=== PATIENT | female | born 1985 | race Two or more races ===

== ENCOUNTER 2018-01-07 09:07 | Inpatient (IN) | payer OTHER ==
[2018-01-07] MEDS ORDERED: DEXTROSE 5%-LACTATED RINGERS 1,000 ML IV SCH (10:00)
[2018-01-07 10:38] LABS: BASO % 0.2 % (0-2.0); EOS % 0.5 % (0-4.5); HEMATOCRIT 38.9 % (32.4-45.2); HEMOGLOBIN 12.9 GM/dL (10.7-15.3); LYMPH % 13.7 % (8-40); MCH 30.8 pg (25.7-33.7); MCHC 33.2 g/dl (32.0-36.0); MEAN CELL VOLUME 92.9 fl (80-96); MEAN PLT VOLUME 10.8 fl (7.5-11.1); MONO % 4.5 % (3.8-10.2); NEUT % 81.1 % (42.8-82.8); PLATELET COUNT 179 K/MM3 (134-434); RBC 4.19 M/mm3 (3.60-5.2); RDW 14.2 % (11.6-15.6); WHITE BLOOD COUNT 11.6 K/mm3 (4.0-10.0)
[2018-01-07 10:50] LABS: INR 0.88 (0.83-1.09); PROTHROMBIN TIME (PATIENT) 10.4 SEC (9.7-13.0)
[2018-01-07 10:52] LABS: ACTIVATED PTT 31.8 SECONDS (25.2-36.5)
[2018-01-07] MEDS: DEXTROSE 5%-LACTATED RINGERS 1,000 ML IV SCH (11:00)
[2018-01-07 11:24] VITALS: BMI 28.1
[2018-01-07 11:44] LABS: ANION GAP 9 MMOL/L (8-16); BLOOD UREA NITROGEN 7 mg/dL (7-18); CALCIUM 8.9 mg/dL (8.5-10.1); CHLORIDE 108 mmol/L (98-107); CO2 22 mmol/L (21-32); CREATININE 0.5 mg/dL (0.55-1.3); GLUCOSE,RANDOM 139 mg/dL (74-106); POTASSIUM 3.9 mmol/L (3.5-5.1); SODIUM 139 mmol/L (136-145)
[2018-01-07] MEDS ORDERED: BUTORPHANOL TARTRATE 1 MG/ML VIAL ONE ×2 (15:30)
[2018-01-07] MEDS ORDERED: BUTORPHANOL TARTRATE 1 MG/ML VIAL IVPB ONE (15:30)
[2018-01-07] MEDS ORDERED: PROMETHAZINE HCL 25 MG/1 ML VIAL IVPB ONE (15:30)
[2018-01-07] MEDS ORDERED: PROMETHAZINE HCL 25 MG/1 ML VIAL ONE (15:30)
[2018-01-07] MEDS: OXYTOCIN 30 UNITS in 0.9% NS 30 UNIT/500 ML INFUS.BAG IVPB SCH (17:30)
[2018-01-07] MEDS ORDERED: ELECTROLYTE-148 SOLN 500 ML IV ONE (18:00)
--- NOTE | 2018-01-07 18:40 | HP ---
Past Medical History - Primary Care Physician PCP:: Lindsay Zavala - Admission Chief Complaint: 32yo P0 @ 39.4 wks with contractions since 5:30am and LOF since 8:30am, clear no Vaginal bleeding, + movement History of Present Illness: 1. Declined Anuploidy screen 2. Posterior placenta previa 3. Resolved posterior placenta previa 4. Tdap @ 28wks 5. Increased PP depression risk as per Dr. Barker 6. GBS neg History Source: Patient Limitations to Obtaining History: No Limitations - Past Medical History ...: 1 ...Para: 0 ...Term: 0 ...: 0 ...Spon : 0 ...Induced : 0 ...LMP: 04/03/17 ... Weeks Gestation by Dates: 39.6 ...EDC by Dates: 01/08/18 ...EDC by Sono: 01/08/18 Additional Medical History: Migranes. 2013 Chlamydia - Past Surgical History Past Surgical History: Yes: None Hx Myomectomy: No Hx Transabdominal Cerclage: No - Smoking History Smoking history: Never smoked Have you smoked in the past 12 months: No - Alcohol/Substance Use Hx Alcohol Use: No History of Substance Use: reports: None - Social History Usual Living Arrangement: Yes: With Spouse History of Recent Travel: No Home Medications - Allergies Allergies/Adverse Reactions: Allergies Allergy/AdvReac Type Severity Reaction Status Date / Time No Known Drug Allergies Allergy Verified 01/07/18 11:57 - Home Medications Home Medications: Ambulatory Orders Prenat 115/Iron Fum/Folic/Dss [ 19 Tablet] 1 tab PO DAILY 01/07/18 Review of Systems - Review of Systems Constitutional: reports: No Symptoms Eyes: reports: No Symptoms HENT: reports: No Symptoms Neck: reports: No Symptoms Cardiovascular: reports: No Symptoms Respiratory: reports: No Symptoms Gastrointestinal: reports: No Symptoms Genitourinary: reports: No Symptoms Breasts: reports: No Symptoms Reported Musculoskeletal: reports: No Symptoms Integumentary: reports: No Symptoms Neurological: reports: No Symptoms Endocrine: reports: No Symptoms Hematology/Lymphatic: reports: No Symptoms Psychiatric: reports: No Symptoms Physical Exam - Maternity Vital Signs: Vital Signs Temperature 98.9 F 01/07/18 17:51 Pulse Rate 87 01/07/18 17:51 Respiratory Rate 20 01/07/18 17:51 Blood Pressure 126/73 01/07/18 17:51 O2 Sat by Pulse Oximetry (%) Constitutional: Yes: Well Nourished, No Distress, Calm Eyes: Yes: WNL, Conjunctiva Clear, EOM Intact HENT: Yes: WNL, Atraumatic, Normocephalic Neck: Yes: WNL, Supple, Trachea Midline Cardiovascular: Yes: WNL, Regular Rate and Rhythm Lungs: Clear to auscultation Breast(s): Yes: WNL - Abdominal Exam/OB Fundal Height: 39 (7lb) Number of Fetuses: Single Presentation: Vertex Contractions: Yes Regularity: Regular Intensity: Moderate Monitor Mode: External Heart Rate (range): 135's Heart Rate Location: Midline Category: I Accelerations: Uniform Decelerations: None - Vaginal Exam/OB Vaginal Bleediing: No Speculum Exam: No Dilatation (cm): 5 Effacement (%): 75% Amniotic Membrane Status: Bulging (forewaters) Nitrazine Test: Positive Amniotic Fluid: Yes: Clear Presentation: Vertex/Position Station: -3 - Physical Exam Musculoskeletal: Yes: WNL Extremities: Yes: WNL Edema: No Integumentary: Yes: WNL ...Motor Strength: WNL Psychiatric: Yes: WNL, Alert, Oriented - Labs Lab Results: CBC, BMP 01/07/18 10:23 01/07/18 10:23 Assessment/Plan 32yo P0 @ 39.4wks Admit to L&D IVFluids, NPO Pain managment as needed Adequate pelvis EFW -7lb Category 1 FHR Will monitor labor progress Anticipate
[2018-01-07] MEDS ORDERED: FENTANYL/BUPIVACAINE/NS/PF - PCEA - 50 ML DISP.SYRIN EP ONE (18:59)
[2018-01-07] MEDS ORDERED: ELECTROLYTE-148 SOLN 1,000 ML IV SCH (19:00)
[2018-01-07] MEDS ORDERED: NALOXONE HCL 0.4 MG/ML VIAL IVPUSH PRN (20:12)
[2018-01-07] MEDS ORDERED: FENTANYL/BUPIVACAINE/NS/PF - PCEA - 50 ML DISP.SYRIN EP SCH (20:15)
--- NOTE | 2018-01-07 21:28 | PN ---
Progress Note, Labor Vaginal Exam #1 Labor Exam Date: 01/07/18 Labor Exam Time: 21:00 Heart Rate (range): 150's + accels, occasional varriable decels Dilatation: 7cm Effacement (%): 80 Amniotic Membrane Status: Ruptured Presentation: Vertex/Position Station: -2 Remarks: very reassuring Category 2 FHR continue O2 by face mask and position change for prevention of variable decelerations
[2018-01-08] MEDS ORDERED: FENTANYL/BUPIVACAINE/NS/PF - PCEA - 50 ML DISP.SYRIN EP ONE (00:05)
[2018-01-08] MEDS ORDERED: LIDOCAINE HCL 1% PRESERVATIVE FREE - 30ML VIAL ONE (00:15)
[2018-01-08] MEDS ORDERED: OXYTOCIN 20 UNITS in 0.9% NS 20 UNIT/1,000 ML INFUS.BAG IV ONE (00:15)
[2018-01-08] MEDS ORDERED: BENZOCAINE 28 GM HEMORRHOIDAL OINTMENT TP PRN ×2 (03:32)
[2018-01-08] MEDS ORDERED: IBUPROFEN 600 MG TABLET (FP) PO PRN (03:32)
[2018-01-08] MEDS ORDERED: METHYLERGONOVINE MALEATE 0.2 MG/1 ML AMP IM PRN ×2 (03:32)
[2018-01-08] MEDS ORDERED: WITCH HAZEL 50% (TUCKS) 40 PAD/JAR PAD TP PRN ×2 (03:32)
[2018-01-08] MEDS ORDERED: BISACODYL 10 MG SUPP.RECT RC PRN ×2 (03:32)
[2018-01-08] MEDS ORDERED: ACETAMINOPHEN 325 MG TABLET (FP) PO PRN (03:32)
[2018-01-08] MEDS ORDERED: BENZOCAINE 20% 57 GM BOTTLE TP PRN (03:32)
--- NOTE | 2018-01-08 03:42 | PN ---
Delivery - Delivery Vaginal Delivery: No Problems Type of Anesthesia: Epidural Episiotomy/Laceration: Midline EBL (cc): 500 Delivery, Single - Stages of Labor Date 1st Stage Initiatied: 01/07/18 Time 1st Stage Initiated: 05:45 Date 2nd Stage Initiated: 01/08/18 Time 2nd Stage Initiated: 02:40 Date of Delivery: 01/08/18 Time of Delivery: 03:07 Date Placenta Delivered: 01/08/18 Time Placenta Delivered: 03:15 Placenta: Yes: Spontaneous - Condition of Infant Chief Radiology/Music Agent Present: No Infant Gender: Male Position: Left, OA Total Hours ROM (Hrs/Mins): 19 hr - 1 Minute Total Score: 9 5 Minutes Total Score: 9 - Feeding Plan Initial Plan: Exclusive throughout hospitalization Benefits of Exclusively reinforced: Yes Remarks - Remarks Remarks: Cord around the neck x 2 reduced without difficulty head and shoulders delivered without difficulty
[2018-01-08] MEDS ORDERED: D5W-LR W/ 20 UNITS OXYTOCIN 1,000 ML IV SCH (03:45)
[2018-01-08] MEDS ORDERED: OXYTOCIN 20 UNITS in 0.9% NS 20 UNIT/1,000 ML INFUS.BAG IV SCH (03:45)
[2018-01-08 03:52] LABS: ARTERIAL BLOOD GAS BASE EXCESS -7.2 meq/l (-2-2)
[2018-01-08 04:04] LABS: ARTERIAL BLOOD GAS PCO2 62.3 mmHg (35-45); ARTERIAL BLOOD GAS pH 7.18 (7.35-7.45)
[2018-01-08 04:05] LABS: ARTERIAL BLD GAS O2 SATURATION 12.2 % (90-98.9)
[2018-01-08 04:08] LABS: VENOUS PC02 44.7 mmHg (38-52); VENOUS PH 7.29 (7.32-7.42)
[2018-01-08 04:09] LABS: VENOUS PO2 23.6 mmHg (28-48)
[2018-01-08] MEDS: FERROUS SO4 325 MG TABLET (FP) PO SCH ×2 (07:24→16:36)
[2018-01-08] MEDS: IBUPROFEN 600 MG TABLET (FP) PO PRN ×3 (07:24→16:36)
[2018-01-08] MEDS: ACETAMINOPHEN 325 MG TABLET (FP) PO PRN ×3 (07:25→16:36)
[2018-01-08] MEDS: BENZOCAINE 20% 57 GM BOTTLE TP PRN (07:27)
[2018-01-08] MEDS ORDERED: PRENATAL VITAMINS W/ FOLIC ACID TABLET (FP) PO SCH (10:00)
[2018-01-08] MEDS: PRENATAL VITAMINS W/ FOLIC ACID TABLET (FP) PO SCH (10:31)
[2018-01-08] MEDS: DEXTROSE 5%-LACTATED RINGERS 1,000 ML IV SCH (12:28)
[2018-01-08] MEDS: OXYTOCIN 30 UNITS in 0.9% NS 30 UNIT/500 ML INFUS.BAG IVPB SCH (18:32)
[2018-01-09 07:22] LABS: BASO % 0.4 % (0-2.0); EOS % 1.2 % (0-4.5); HEMOGLOBIN 10.4 GM/dL (10.7-15.3); LYMPH % 17.5 % (8-40); MCH 30.2 pg (25.7-33.7); MCHC 32.4 g/dl (32.0-36.0); MEAN CELL VOLUME 93.3 fl (80-96); MEAN PLT VOLUME 10.2 fl (7.5-11.1); MONO % 5.2 % (3.8-10.2); NEUT % 75.7 % (42.8-82.8); PLATELET COUNT 159 K/MM3 (134-434); RBC 3.43 M/mm3 (3.60-5.2); RDW 14.8 % (11.6-15.6); WHITE BLOOD COUNT 12.5 K/mm3 (4.0-10.0)
--- NOTE | 2018-01-09 07:44 | PN ---
Post Progress Note - Subjective Subjective: No complaints Post Day: 1 Type of Delivery: Vital Signs: Vital Signs Temperature 97.7 F 01/08/18 20:53 Pulse Rate 106 H 01/08/18 20:53 Respiratory Rate 20 01/08/18 20:53 Blood Pressure 134/81 01/08/18 20:53 O2 Sat by Pulse Oximetry (%) 100 01/08/18 04:40 Breast Exam: Yes: Soft Uterus: Yes: Fundus Firm, Fundus below umbilicus, Non-tender Incision: Yes: Dressing dry and intact Abdomen/GI: Yes: Abdomen soft, Tolerating PO Lochia: Yes: Rubra Lochia, amount: Small Extremities: Yes: Calves non-tender Perineum: Yes: Intact Activity: Ambulating - Labs Labs: CBC WBC 12.5 K/mm3 (4.0-10.0) H 01/09/18 06:30 RBC 3.43 M/mm3 (3.60-5.2) L 01/09/18 06:30 Hgb 10.4 GM/dL (10.7-15.3) L 01/09/18 06:30 Hct 32.0 % (32.4-45.2) L D 01/09/18 06:30 MCV 93.3 fl (80-96) 01/09/18 06:30 MCH 30.2 pg (25.7-33.7) 01/09/18 06:30 MCHC 32.4 g/dl (32.0-36.0) 01/09/18 06:30 RDW 14.8 % (11.6-15.6) 01/09/18 06:30 Plt Count 159 K/MM3 (134-434) 01/09/18 06:30 MPV 10.2 fl (7.5-11.1) 01/09/18 06:30 Absolute Neuts (auto) 9.4 K/mm3 (1.5-8.0) H 01/09/18 06:30 Neutrophils % 75.7 % (42.8-82.8) 01/09/18 06:30 Lymphocytes % 17.5 % (8-40) D 01/09/18 06:30 Monocytes % 5.2 % (3.8-10.2) 01/09/18 06:30 Eosinophils % 1.2 % (0-4.5) D 01/09/18 06:30 Basophils % 0.4 % (0-2.0) 01/09/18 06:30 Nucleated RBC % 0 % (0-0) 01/09/18 06:30 Assessment/Plan 32yo PPD1 s/p , doing well stable, afebrile. care instructions reviewed. Continue routine care. Ambulation encouraged Discharge instruction reviewed.
--- NOTE | 2018-01-09 08:11 | DS ---
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: Vital Signs Temperature 97.7 F 01/08/18 20:53 Pulse Rate 106 H 01/08/18 20:53 Respiratory Rate 20 01/08/18 20:53 Blood Pressure 134/81 01/08/18 20:53 O2 Sat by Pulse Oximetry (%) 100 01/08/18 04:40 Constitutional: Yes: Well Nourished, No Distress, Calm Eyes: Yes: WNL, Conjunctiva Clear HENT: Yes: WNL, Atraumatic, Normocephalic Neck: Yes: WNL, Supple, Trachea Midline Cardiovascular: Yes: WNL, Regular Rate and Rhythm Respiratory: Yes: WNL, Regular, CTA Bilaterally Gastrointestinal: Yes: WNL, Normal Bowel Sounds, Soft ...Rectal Exam: Yes: Deferred Renal/: Yes: WNL Pelvis: Yes: WNL ....Post : Yes: Uterus firm, Uterus non-tender, Slight lochia rubra Breast(s): Yes: WNL Musculoskeletal: Yes: WNL Extremities: Yes: WNL Integumentary: Yes: WNL Neurological: Yes: WNL, Alert, Oriented ...Motor Strength: WNL Psychiatric: Yes: WNL, Alert, Oriented Labs: CBC, BMP 01/09/18 06:30 01/07/18 10:23 Delivery - Delivery Vaginal Delivery: No Problems Type of Anesthesia: Epidural Episiotomy/Laceration: Midline EBL (cc): 500 Delivery, Single - Stages of Labor Date 1st Stage Initiatied: 01/07/18 Time 1st Stage Initiated: 05:45 Date 2nd Stage Initiated: 01/08/18 Time 2nd Stage Initiated: 02:40 Date of Delivery: 01/08/18 Time of Delivery: 03:07 Time Placenta Delivered: 03:15 Placenta: Yes: Spontaneous - Condition of Gum Cook/Ibm Bpm Developer Present: No Gender: Male Weight: 3.175 kg Position: Left, OA Total Hours ROM (Hrs/Mins): 18Hrs/55Mins - 1 Minute Total Score: 9 5 Minutes Total Score: 9 - Feeding Plan Initial Plan: Exclusive throughout hospitalization Benefits of Exclusively reinforced: Yes Discharge Summary Reason For Visit: LABOR ADMISSION Procedures: Principal: Hospital Course: Normal recovery Condition: Good - Instructions Diet, Activity, Other Instructions: Physical activity Resume your normal everyday activity as tolerated no heavy lifting or exercise until seen by your surgeon. You may walk unlimited kumar of and climb stairs. You may resume driving the car when you feel safe and comfortable behind the wheel. No sexual activity as instructed. Wound care If you have a bandage, leave it on, and keep dry for 48-72 hours. After that time discard the outer bandage. If they are tapes on the skin under the out of bandage leave them in place. They will peel off in the next 7 to 10 days. Do Not Peel them off. You may shower the day after surgery. If there are tapes present on the skin, you may shower over them. Diet There are no dietary restrictions. Eat healthy, high-fiber foods. Drink 6 to 8 glasses of liquid each day. This will assist in keeping your bowels are regular. Pain management You may take Tylenol or acetaminophen or Ibuprofen (for example, Motrin, Advil etc.) from my pain prescription medication is ordered should be taken as prescribed for moderate to severe pain. Call MD for any of the following: Severe pain not relieved by medication Fever of 101 or higher Excessive bleeding or drainage on dressing Inability to urinate Disposition: HOME - Home Medications Comprehensive Discharge Medication List: Ambulatory Orders Prenat 115/Iron Fum/Folic/Dss [ 19 Tablet] 1 tab PO DAILY 01/07/18
[2018-01-09] MEDS: FERROUS SO4 325 MG TABLET (FP) PO SCH ×2 (09:06→18:54)
[2018-01-09] MEDS: ACETAMINOPHEN 325 MG TABLET (FP) PO PRN ×2 (09:06→21:28)
[2018-01-09] MEDS: IBUPROFEN 600 MG TABLET (FP) PO PRN ×2 (09:07→21:30)
[2018-01-09] MEDS: PRENATAL VITAMINS W/ FOLIC ACID TABLET (FP) PO SCH (09:56)
[2018-01-09 21:32] VITALS: TEMP 97.9
[2018-01-09] MEDS ORDERED: SENNOSIDES/DOCUSATE COMBO (SENNA PLUS) TABLET (UD) PO PRN ×2 (22:00)
--- NOTE | 2018-01-10 01:16 | PN ---
Post Progress Note - Subjective Subjective: Patient without acute complaints. Reports tolerating oral intake without nausea or vomiting. Ambulating without dizziness. Denies fevers or chills. Pain well controlled with oral pain medication. without difficulty. Passing flatus. Post Day: 1 Type of Delivery: Vital Signs: Vital Signs Temperature 97.9 F 01/09/18 21:31 Pulse Rate 100 H 01/09/18 21:31 Respiratory Rate 20 01/09/18 21:31 Blood Pressure 126/74 01/09/18 21:31 O2 Sat by Pulse Oximetry (%) 100 01/08/18 04:40 Breast Exam: Yes: Engorged Uterus: Yes: Fundus Firm, Fundus below umbilicus Abdomen/GI: Yes: Abdomen soft, Passing flatus, Tolerating PO. No: Tender Lochia: Yes: Serosa Lochia, amount: Small Extremities: Yes: Calves non-tender, Edema (trace) Activity: Ambulating - Labs Labs: CBC WBC 12.5 K/mm3 (4.0-10.0) H 01/09/18 06:30 RBC 3.43 M/mm3 (3.60-5.2) L 01/09/18 06:30 Hgb 10.4 GM/dL (10.7-15.3) L 01/09/18 06:30 Hct 32.0 % (32.4-45.2) L D 01/09/18 06:30 MCV 93.3 fl (80-96) 01/09/18 06:30 MCH 30.2 pg (25.7-33.7) 01/09/18 06:30 MCHC 32.4 g/dl (32.0-36.0) 01/09/18 06:30 RDW 14.8 % (11.6-15.6) 01/09/18 06:30 Plt Count 159 K/MM3 (134-434) 01/09/18 06:30 MPV 10.2 fl (7.5-11.1) 01/09/18 06:30 Absolute Neuts (auto) 9.4 K/mm3 (1.5-8.0) H 01/09/18 06:30 Neutrophils % 75.7 % (42.8-82.8) 01/09/18 06:30 Lymphocytes % 17.5 % (8-40) D 01/09/18 06:30 Monocytes % 5.2 % (3.8-10.2) 01/09/18 06:30 Eosinophils % 1.2 % (0-4.5) D 01/09/18 06:30 Basophils % 0.4 % (0-2.0) 01/09/18 06:30 Nucleated RBC % 0 % (0-0) 01/09/18 06:30 Assessment/Plan 32 yo PPD #2 s/p , afebrile, vital signs stable, doing well 1. Patient stable for discharge home today. 2. Patient encouraged to contact MD for: - Severe pain not controlled by oral pain medication - Fevers or chills - Nausea or vomiting, intolerance of oral intake 3. Patient to follow up in office in 2-3 weeks
[2018-01-10] MEDS: FERROUS SO4 325 MG TABLET (FP) PO SCH (07:39)
[2018-01-10] MEDS: IBUPROFEN 600 MG TABLET (FP) PO PRN (07:39)
[2018-01-10] MEDS: ACETAMINOPHEN 325 MG TABLET (FP) PO PRN (07:41)
[2018-01-10 09:19] VITALS: BP 120/75; PULSE 92
[2018-01-10] MEDS: BENZOCAINE 20% 57 GM BOTTLE TP PRN (10:23)
[2018-01-10] MEDS: PRENATAL VITAMINS W/ FOLIC ACID TABLET (FP) PO SCH (10:23)
== END 2018-01-10 11:20 | disposition home or self-care (01) | DRG 807 ==
LOC: JLDR 09:07 → J3W 01-08 05:08
PROVIDERS: ADMIT Obstetrics & Gynecology; ATTEND Obstetrics & Gynecology
PROC: 10E0XZZ Delivery of Products of Conception, External Approach (ICD-10-PCS; principal; 2018-01-08)
PROC: 0W8NXZZ Division of Female Perineum, External Approach (ICD-10-PCS; 2018-01-08)
DX: O69.81X0 Labor and delivery complicated by cord around neck, without compression, not applicable or unspecified (principal); Z37.0 Single live birth; Z3A.39 39 weeks gestation of pregnancy
CPT/HCPCS: 36415; 36600; 59409; 80048; 82803; 85025; 85610; 85730; 86593; 86850; 86900; 86901

== ENCOUNTER 2019-06-05 02:30 | Inpatient (IN) | payer OTHER ==
[2019-06-05 03:28] LABS: BASO % 0.3 % (0-2.0); EOS % 0.4 % (0-4.5); HEMOGLOBIN 14.9 GM/dL (10.7-15.3); LYMPH % 27.9 % (8-40); MCH 32.3 pg (25.7-33.7); MCHC 33.9 g/dl (32.0-36.0); MEAN CELL VOLUME 95.2 fl (80-96); MEAN PLT VOLUME 11.7 fl (7.5-11.1); MONO % 5.1 % (3.8-10.2); NEUT % 66.3 % (42.8-82.8); PLATELET COUNT 169 K/MM3 (134-434); RBC 4.62 M/mm3 (3.60-5.2); RDW 14.2 % (11.6-15.6); WHITE BLOOD COUNT 9.8 K/mm3 (4.0-10.0)
[2019-06-05 03:32] VITALS: BMI 28.3
[2019-06-05 03:48] LABS: BLOOD UREA NITROGEN 7.5 mg/dL (7-18); CALCIUM 8.9 mg/dL (8.5-10.1); CREATININE 0.6 mg/dL (0.55-1.3); POTASSIUM 3.4 mmol/L (3.5-5.1)
[2019-06-05 03:51] LABS: INR 0.84 (0.83-1.09); PROTHROMBIN TIME (PATIENT) 9.9 SEC (9.7-13.0)
[2019-06-05 03:53] LABS: ACTIVATED PTT 28.6 SECONDS (25.2-36.5)
[2019-06-05] MEDS ORDERED: FENTANYL/BUPIVACAINE/NS/PF - PCEA - 50 ML DISP.SYRIN EP ONE (03:55)
[2019-06-05] MEDS ORDERED: NALOXONE HCL 0.4 MG/ML VIAL IVPUSH PRN (07:34)
[2019-06-05] MEDS ORDERED: FENTANYL/BUPIVACAINE/NS/PF - PCEA - 50 ML DISP.SYRIN EP SCH (07:45)
[2019-06-05] MEDS ORDERED: OXYTOCIN 30 UNITS in 0.9% NS 30 UNIT/500 ML INFUS.BAG IVPB ONE (07:47)
[2019-06-05] MEDS ORDERED: OXYTOCIN 20 UNITS in 0.9% NS 20 UNIT/1,000 ML INFUS.BAG IV ONE (07:47)
--- NOTE | 2019-06-05 07:55 | HP ---
Past Medical History - Primary Care Physician PCP:: Liborio Redd - Admission Chief Complaint: 39 weeks, labor History of Present Illness: 33 yo f g 2 p1001 ,39 weeks in labor , cx 3 cm 80 vx -2mi, fhr cat 1, regular ccontraction , GBS negative History Source: Patient Limitations to Obtaining History: No Limitations - Past Medical History ...: 2 ...Para: 1 ...Term: 1 ...: 0 ...Spon : 0 ...Induced : 0 ...Multiple Gestation: 0 ...LMP: 10/01/18 ... Weeks Gestation by Dates: 39.0 ...EDC by Dates: 06/11/18 Additional Medical History: Migranes. 2014 Chlamydia - Past Surgical History Past Surgical History: Yes: None Hx Myomectomy: No Hx Transabdominal Cerclage: No - Smoking History Smoking history: Never smoked Have you smoked in the past 12 months: No - Alcohol/Substance Use Hx Alcohol Use: No History of Substance Use: reports: None - Social History Usual Living Arrangement: Yes: With Spouse History of Recent Travel: No Home Medications - Allergies Allergies/Adverse Reactions: Allergies Allergy/AdvReac Type Severity Reaction Status Date / Time No Known Drug Allergies Allergy Verified 01/07/18 11:57 - Home Medications Home Medications: Ambulatory Orders Prenat 115/Iron Fum/Folic/Dss [ 19 Tablet] 1 tab PO DAILY 01/07/18 Review of Systems - Review of Systems Constitutional: reports: No Symptoms Eyes: reports: No Symptoms HENT: reports: No Symptoms Neck: reports: No Symptoms Cardiovascular: reports: No Symptoms Respiratory: reports: No Symptoms Gastrointestinal: reports: No Symptoms Genitourinary: reports: No Symptoms Breasts: reports: No Symptoms Reported Musculoskeletal: reports: No Symptoms Integumentary: reports: No Symptoms Neurological: reports: No Symptoms Endocrine: reports: No Symptoms Hematology/Lymphatic: reports: No Symptoms Psychiatric: reports: No Symptoms Physical Exam - Maternity Vital Signs: Vital Signs Temperature 98.4 F 06/05/19 07:00 Pulse Rate 71 06/05/19 02:30 Respiratory Rate 18 06/05/19 02:30 Blood Pressure 123/78 06/05/19 02:30 O2 Sat by Pulse Oximetry (%) Constitutional: Yes: Well Nourished, No Distress, Calm Eyes: Yes: WNL, Conjunctiva Clear, EOM Intact HENT: Yes: WNL, Atraumatic, Normocephalic Neck: Yes: WNL, Supple, Trachea Midline Cardiovascular: Yes: WNL, Regular Rate and Rhythm Breast(s): Yes: WNL - Abdominal Exam/OB Fundal Height: 38 Number of Fetuses: Single Presentation: Vertex Contractions: Yes Regularity: Regular Monitor Mode: External Heart Rate Location: [facility] Category: I - Vaginal Exam/OB Vaginal Bleediing: No Speculum Exam: No Dilatation (cm): 3 Effacement (%): 80 Amniotic Membrane Status: Intact - Physical Exam Musculoskeletal: Yes: WNL Edema: Yes Edema: LLE: Trace, RLE: Trace Deep Tendon Reflex Grade: Normal +2 ...Motor Strength: WNL Psychiatric: Yes: WNL - Labs Lab Results: CBC, BMP 06/05/19 03:00 06/05/19 03:00 Problem List - Problems (1) with 39 completed weeks gestation Code(s): Z3A.39 - 39 WEEKS GESTATION OF (2) Labor established Code(s): WLQ6757 - Assessment/Plan admit for vaginal delivery [facility]
--- NOTE | 2019-06-05 07:56 | PN ---
Progress Note (short form) - Note Progress Note: cx 8 cm, 100 vx I+ , fhr cat 1, regular contraction. has epidural, arom, clear Problem List - Problems (1) with 39 completed weeks gestation Code(s): Z3A.39 - 39 WEEKS GESTATION OF (2) Labor established Code(s): [id number] -
[2019-06-05] MEDS ORDERED: LIDOCAINE HCL 1% PRESERVATIVE FREE - 30ML VIAL ONE (08:01)
[2019-06-05] MEDS ORDERED: METHYLERGONOVINE MALEATE 0.2 MG/1 ML AMP IM PRN (08:29)
[2019-06-05] MEDS ORDERED: BISACODYL 10 MG SUPP.RECT RC PRN (08:29)
[2019-06-05] MEDS ORDERED: BENZOCAINE 28 GM HEMORRHOIDAL OINTMENT TP PRN (08:29)
[2019-06-05] MEDS ORDERED: BENZOCAINE 20% 57 GM BOTTLE TP PRN (08:29)
[2019-06-05] MEDS ORDERED: WITCH HAZEL 50% (TUCKS) 40 PAD/JAR PAD TP PRN (08:29)
[2019-06-05] MEDS ORDERED: OXYTOCIN 20 UNITS in 0.9% NS 20 UNIT/1,000 ML INFUS.BAG IV SCH (08:30)
--- NOTE | 2019-06-05 08:32 | PN ---
Delivery - Delivery Vaginal Delivery: Spontaneous Type of Anesthesia: Epidural Episiotomy/Laceration: 1st degree (cx full, head delivered nsopharynx suctioned, ,no cord , ant. and post, shoulder with no difficulty , live baby boy 9/9 , placenta complete, fist degree vaginal mucosa repaired with 2 chromic , no complicatin, EBL 300 cc) Delivery, Single - Feeding Plan Initial Plan: Elected not to breastfeed exclusively throughout hospitalization
[2019-06-05] MEDS: PRENATAL VITAMINS W/ FOLIC ACID TABLET (FP) PO SCH (10:39)
[2019-06-05] MEDS: IBUPROFEN 600 MG TABLET (FP) PO PRN ×2 (10:39→15:45)
[2019-06-05] MEDS: ACETAMINOPHEN 325 MG TABLET (FP) PO PRN ×2 (10:39→15:45)
[2019-06-05] MEDS: FERROUS SO4 325 MG TABLET (FP) PO SCH (17:54)
[2019-06-06] MEDS: ACETAMINOPHEN 325 MG TABLET (FP) PO PRN ×4 (03:18→20:38)
[2019-06-06] MEDS: IBUPROFEN 600 MG TABLET (FP) PO PRN ×4 (03:18→20:37)
--- NOTE | 2019-06-06 07:06 | PN ---
Progress Note (short form) - Note Progress Note: ppd 1.s/p , no c/o , voids ok, no excess vaginal bleeding Last Vital Signs Temp Pulse Resp BP Pulse Ox 98.0 F 85 20 118/73 98 06/05/19 20:29 06/05/19 20:29 06/05/19 20:29 06/05/19 20:29 06/05/19 09:05 abdomen soft, no cva uterus firm, non tender . no cva lochia mild , no clots no calf tenderness plan ambulate , cbc plan for D/C home in am Problem List - Problems (1) with 39 completed weeks gestation Code(s): Z3A.39 - 39 WEEKS GESTATION OF (2) Labor established Code(s): [id number] -
[2019-06-06] MEDS: FERROUS SO4 325 MG TABLET (FP) PO SCH ×2 (07:48→18:08)
[2019-06-06 08:07] LABS: BASO % 0.5 % (0-2.0); EOS % 0.5 % (0-4.5); HEMATOCRIT 37.8 % (32.4-45.2); LYMPH % 20.4 % (8-40); MCH 32.5 pg (25.7-33.7); MCHC 34.3 g/dl (32.0-36.0); MEAN CELL VOLUME 94.7 fl (80-96); MEAN PLT VOLUME 10.7 fl (7.5-11.1); MONO % 4.6 % (3.8-10.2); PLATELET COUNT 124 K/MM3 (134-434); RBC 3.99 M/mm3 (3.60-5.2); RDW 14.4 % (11.6-15.6); WHITE BLOOD COUNT 8.8 K/mm3 (4.0-10.0)
[2019-06-06] MEDS: PRENATAL VITAMINS W/ FOLIC ACID TABLET (FP) PO SCH (11:19)
[2019-06-06] MEDS ORDERED: SENNOSIDES/DOCUSATE COMBO (SENNA PLUS) TABLET (UD) PO PRN (22:00)
[2019-06-07] MEDS: ACETAMINOPHEN 325 MG TABLET (FP) PO PRN ×2 (05:47→08:42)
[2019-06-07] MEDS: IBUPROFEN 600 MG TABLET (FP) PO PRN ×2 (05:47→09:34)
[2019-06-07] MEDS: FERROUS SO4 325 MG TABLET (FP) PO SCH (08:42)
[2019-06-07] MEDS: PRENATAL VITAMINS W/ FOLIC ACID TABLET (FP) PO SCH (10:23)
--- NOTE | 2019-06-07 11:49 | DS ---
Physical Exam-EMBROIDERY MACHINE OPERATOR Vital Signs: Vital Signs Temperature 98.7 F 06/06/19 22:00 Pulse Rate 72 06/06/19 22:00 Respiratory Rate 18 06/06/19 22:00 Blood Pressure 112/58 L 06/06/19 22:00 O2 Sat by Pulse Oximetry (%) 98 06/05/19 09:05 Constitutional: Yes: Well Nourished, No Distress, Calm Eyes: Yes: WNL HENT: Yes: WNL Neck: Yes: WNL, Supple, Trachea Midline Cardiovascular: Yes: WNL, Regular Rate and Rhythm Respiratory: Yes: WNL, Regular, CTA Bilaterally Gastrointestinal: Yes: WNL, Normal Bowel Sounds, Soft Pelvis: Yes: WNL External Genitalia: Yes: Normal ....Post : Yes: Uterus firm, Uterus non-tender Breast(s): Yes: WNL Musculoskeletal: Yes: WNL Extremities: Yes: WNL Edema: No Integumentary: Yes: WNL Neurological: Yes: WNL, Alert, Oriented ...Motor Strength: WNL Psychiatric: Yes: WNL, Alert, Oriented Labs: CBC, BMP 06/06/19 07:29 06/05/19 03:00 Delivery - Delivery Vaginal Delivery: Spontaneous Type of Anesthesia: Epidural Episiotomy/Laceration: 1st degree EBL (cc): 250 Delivery, Single - Stages of Labor Date 1st Stage Initiatied: 06/05/19 Time 1st Stage Initiated: 00:00 Date 2nd Stage Initiated: 06/05/19 Time 2nd Stage Initiated: 08:10 Date of Delivery: 06/05/19 Time of Delivery: 08:18 Time Placenta Delivered: 08:20 - Condition of Label Drier/Ham Smoker Present: No Infant Gender: Male Weight: 6 lb 11 oz Position: Left, OA Total Hours ROM (Hrs/Mins): 35 minutes - 1 Minute Total Score: 9 5 Minutes Total Score: 9 - [place] Feeding Plan Initial Plan: Elected not to breastfeed exclusively throughout hospitalization Discharge Summary Problems reviewed: Yes Reason For Visit: LABOR Current Active Problems Labor established (Acute) with 39 completed weeks gestation (Acute) Procedures: Principal: Vaginal delivery Hospital Course: Unremarkable Condition: Good - Instructions Diet, Activity, Other Instructions: Physical activity Resume your normal everyday activity as tolerated no heavy lifting or exercise until seen by your surgeon. You may walk unlimited kumar of and climb stairs. You may resume driving the car when you feel safe and comfortable behind the wheel. No sexual activity as instructed. Wound care If you have a bandage, leave it on, and keep dry for 48-72 hours. After that time discard the outer bandage. If they are tapes on the skin under the out of bandage leave them in place. They will peel off in the next 7 to 10 days. Do Not Peel them off. You may shower the day after surgery. If there are tapes present on the skin, you may shower over them. Diet There are no dietary restrictions. Eat healthy, high-fiber foods. Drink 6 to 8 glasses of liquid each day. This will assist in keeping your bowels are regular. Pain management You may take Tylenol or acetaminophen or Ibuprofen (for example, Motrin, Advil etc.) from my pain prescription medication is ordered should be taken as pres cribed for moderate to severe pain. Call MD for any of the following: Severe pain not relieved by medication Fever of 101 or higher Excessive bleeding or drainage on dressing Inability to urinate Disposition: HOME - Home Medications Comprehensive Discharge Medication List: Ambulatory Orders Prenat 115/Iron Fum/Folic/Dss [ 19 Tablet] 1 tab PO DAILY 01/07/18
[2019-06-07 13:10] VITALS: BP 126/76; PULSE 95; TEMP 97.9
== END 2019-06-07 12:50 | disposition home or self-care (01) | DRG 560 ==
LOC: JLDR 02:30 → J3W 10:15
PROVIDERS: ADMIT Obstetrics & Gynecology; ATTEND Obstetrics & Gynecology
PROC: 10E0XZZ Delivery of Products of Conception, External Approach (ICD-10-PCS; principal; 2019-06-05)
PROC: 0HQ9XZZ Repair Perineum Skin, External Approach (ICD-10-PCS; 2019-06-05)
DX: O70.0 First degree perineal laceration during delivery (principal); Z3A.39 39 weeks gestation of pregnancy; Z37.0 Single live birth
CPT/HCPCS: 36415; 59409; 80048; 85025; 85610; 85730; 86593; 86850; 86900; 86901; 87389

== ENCOUNTER 2021-02-28 04:50 | Day surgery (SDC) | payer OTHER ==
[2021-02-22 12:15] VITALS: BMI 22.3
[~2021-02-28 04:50] MED LIST: LIDOCAINE 1%/EPI 1:100000 (20 ML MULTI DOSE VIAL) IJ ONE
[2021-02-28] MEDS ORDERED: MIDAZOLAM HCL 2 MG/2 ML SINGLE DOSE VIAL ONE (07:51)
[2021-02-28] MEDS ORDERED: SUCCINYLCHOLINE CHLORIDE 200 MG/10 ML SYRINGE ONE (07:52)
[2021-02-28] MEDS ORDERED: PROPOFOL 20 ML ONE ×3 (07:54)
[2021-02-28] MEDS ORDERED: LIDOCAINE HCL/PF 2% SDV 5ML VIAL ONE (07:55)
[2021-02-28] MEDS ORDERED: KETOROLAC TROMETHAMINE 30 MG/1 ML VIAL ONE (07:55)
[2021-02-28] MEDS ORDERED: DEXAMETHASONE SOD PHOSPHATE 4 MG/1 ML VIAL ONE (07:55)
[2021-02-28] MEDS ORDERED: LIDOCAINE 1%/EPI 1:100000 (20 ML MULTI DOSE VIAL) ONE (08:19)
[2021-02-28] MEDS ORDERED: LIDOCAINE 1%/EPI 1:100000 (20 ML MULTI DOSE VIAL) IJ ONE (08:43)
[2021-02-28] MEDS ORDERED: SEVOFLURANE 250 ML BTL ONE (08:48)
[2021-02-28] MEDS ORDERED: oxyCODONE HCL 5 MG TABLET PO PRN (09:33)
[2021-02-28] MEDS ORDERED: ONDANSETRON 4 MG/2 ML VIAL IVPUSH PRN (09:33)
[2021-02-28] MEDS ORDERED: ACETAMINOPHEN 325 MG TABLET (FP) PO PRN (09:33)
[2021-02-28] MEDS ORDERED: LACTATED RINGERS SOLUTION 1,000 ML IV SCH (09:45)
[2021-02-28 12:37] VITALS: BP 112/68; PULSE 71; TEMP 97.1
== END 2021-02-28 12:44 | disposition home or self-care (01) ==
LOC: JASU-SURG 04:50
PROVIDERS: ATTEND Obstetrics & Gynecology
PROC: 0UBC8ZX Excision of Cervix, Via Natural or Artificial Opening Endoscopic, Diagnostic (ICD-10-PCS; principal; 2021-02-28 08:00)
DX: D06.7 Carcinoma in situ of other parts of cervix (principal); B97.7 Papillomavirus as the cause of diseases classified elsewhere
CPT/HCPCS: 81025; 94760